=== PATIENT | female | born 2000 | race Caucasian/White ===

== ENCOUNTER 2020-01-17 22:03 | Emergency (ER) | payer OTHER ==
[~2020-01-17] VITALS: Ht 152.4 cm; Wt 74.0 kg
[2020-01-17 22:08] VITALS: BP 129/82
[2020-01-17] MEDS ORDERED: DEXAMETHASONE 4 MG TABLET ONE (22:12)
[2020-01-17] MEDS ORDERED: DEXAMETHASONE 4 MG TABLET PO STA (22:15)
== END 2020-01-17 22:27 | disposition home or self-care (01) ==
LOC: ED 22:24
DX: J02.0 Streptococcal pharyngitis (principal)
CPT/HCPCS: 99283